=== PATIENT | male | born 1985 | race Caucasian/White ===

== ENCOUNTER → 2019-08-02 | Outpatient (CLI) | payer OTHER ==
[~2019-08-02] MED LIST: LEVE10003 PO
--- NOTE | 2019-08-04 21:41 | CR ---
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 HISTORY OF PRESENT ILLNESS: Mr. Clemons is a very pleasant 33-year-old gentleman, initially developed generalized seizure in his sleep in 09/2018. He was subsequently seen by neurologist, and he had a CT, which showed enhancing mass in the left frontal lobe of the brain. He was started on Keppra; however, patient has continued to have intermittent focal seizures, primarily involving the distal right upper extremities, and progressed uncontrollable shaking of distal right upper extremity and hand, and he experienced weakness in his arm just up to the elbow and weakness of fourth and fifth digits of the right hand. Patient's MRI of the brain was obtained, which revealed a nonenhancing metastasis in the left frontal lobe and patient was referred to [facility], where he underwent a biopsy of the lesion, followed by left frontal craniotomy for resection of the tumor, use of neuromonitoring, and neuronavigation on 06/22/2019. The pathology showed diffuse glioma with anaplastic features, WHO grade 3. Isocitrate dehydrogenase (IDH) 1 and 2 negative for IDH 1 and IDH 2 gene mutation. He is recovering from the treatment. He said he has experienced focal seizures in the right upper arm twice since surgery. Medical history is noncontributory. He denies hypertension, high cholesterol, diabetes. PAST SURGICAL HISTORY: Patient has had previous left shoulder surgery. No known allergies. CURRENT MEDICATIONS: - Keppra 1000 mg twice a day - dexamethasone was discontinued - lacosamide 100 mg tablets - Protonics prn SYSTEMIC REVIEW: GENERAL AND CONSTITUTIONAL: He denies fever, headache, nausea, vomiting or recent weight changes. HEENT: He denies any visual disturbances or hearing problems RESPIRATORY/PULMONARY: Denies cough, wheezing, hemoptysis. CARDIOVASCULAR: Denies chest pain, edema. GASTROINTESTINAL: He occasionally experienced gastroesophageal reflux disease . Denies abdominal pain, constipation or diarrhea. GENITOURINARY: Denies urinary frequency, dysuria, hematuria. MUSCULOSKELETAL: He denies any pain, arthritis; however, he has weakness of the right arm. SKIN: No eczema, psoriasis or skin lesions. NEUROLOGICAL: He has focal seizures since surgery on 06/22/2019, he experienced twice, mostly in the right upper arm. PSYCHIATRIC AND EMOTIONAL: Denies depression. PHYSICAL EXAMINATION: GENERAL EXAMINATION: Revealed well-developed, nourished male who does not appear to be in apparent distress. HEENT: Normocephalic, atraumatic. Oropharynx clear. Pupils are isocoric. NECK: Supple. No cervical, supraclavicular lymphadenopathy. On the head, there is a scar on the top of the scalp. CARDIOVASCULAR: Regular rate and rhythm. RESPIRATORY: Clear to auscultation. ABDOMEN: Soft, nontender, nondistended. Without any palpable mass or organomegaly. SKIN: There are no skin lesions. EXTREMITIES: Without swelling or cyanosis. Again, has weakness of right arm. NEUROLOGICAL: Sensation is grossly intact. PSYCHIATRIC: Mood and affect appropriate. PATHOLOGICAL FINDINGS: As mentioned in the history of present illness (HPI). RADIOLOGICAL FINDINGS: As mentioned in the history of present illness (HPI). ICD10 CODE, ASSESSMENT AND RECOMMENDATIONS: This 33-year-old very pleasant young man developed generalized seizure in his sleep in 09/2018. Following CT/MRI of the head, seen by neurologist, he started Keppra; however, he continued to have intermittent focal seizures. Subsequently,he had underwent a biopsy of the left frontal lobe followed by left frontal craniotomy for resection of the tumor( partial) and the pathology showed wild- type anaplastic astrocytoma, WHO grade 3. He was accompanied by his mother. we have discussed nature of the disease and treatment options. His diagnosis, anaplastic astrocytoma, wild type, is much more like glioblastoma multiforme and treatment is similar with GBM. which is standard radiation therapy along with Temodar. Radiation therapy will be about 6000 cGy in 6 weeks. I also discussed procedures and possible side effects associated with radiation therapy and I have given them a chance to ask questions and concerns and they were answered to their satisfaction. [facility]
== END ==
LOC: M ONCR 13:46
PROVIDERS: ATTEND Radiology Radiation Oncology
DX: C71.9 Malignant neoplasm of brain, unspecified (principal)

== ENCOUNTER 2019-08-15 10:00 | Outpatient (RCR) | payer OTHER ==
--- NOTE | 2019-08-16 10:49 | RADONC ---
RADIATION ONCOLOGY SIMULATION NOTE DATE: 08/15/2019 CHART #: [id number] Mr. Clemons was taken to the CT scan for CT simulation of his brain field. CT was accomplished without difficulty or discomfort. Radiation treatment planning is underway and radiation treatments will begin subsequently. An immobilization device including a mask was created and will be used throughout the course of treatment. It was created without difficulty or discomfort. I was physically present throughout the course of CT simulation.
--- NOTE | 2019-08-17 10:40 | RADONC ---
RADIATION ONCOLOGY PROGRESS NOTE DATE: 08/17/2019 CHART #: [id number] We are presently undertaking treatment planning for Mr. Clemons's primary brain tumor. Upon reviewing his consultation by Dr. Stephanie Barraza, I see that she has written the diagnosis as an anaplastic astrocytoma, World Health Organization (WHO) grade 3, wild type. After further review, apparently the specimen was reevaluated and it is noted that the diagnosis now is a glioblastoma WHO, grade 4, IDH/wild type. The note informs us that the morphologic immunohistochemical features are similar to the previous specimen, although microvascular proliferation and necrosis were not present in the previous specimen. It was therefore diagnosed as a grade 3 anaplastic astrocytoma. Molecular studies on tissues from the previous study demonstrated isolated 1p loss with retained 19q and IDH1/2 - wild type status. Once again, in summary, this appears to be a grade 4 glioblastoma multiforme rather than a grade 3 anaplastic astrocytoma. This of course will change our overall treatment planning and dose specifications. We will compensate accordingly. cc: MD David Cortez MD
== END 2019-08-18 ==
LOC: M ONCR 10:00
PROVIDERS: ATTEND Radiology Radiation Oncology
DX: C71.1 Malignant neoplasm of frontal lobe (principal)

== ENCOUNTER → 2019-09-18 | Outpatient (RCR) | payer OTHER ==
--- NOTE | 2019-08-28 14:51 | RADONC ---
RADIATION ONCOLOGY PROGRESS NOTE DATE: 08/27/2019 CHART NUMBER: [id number] Mr. Clemons is presently at a dose of 900 centigrade to his brain and is tolerating treatments quite well at this point with no complaints related to his radiation therapy. He is having no headaches or other problems. The patient's review of systems is noncontributory except for his continued right-sided hand weakness. He denies nausea, vomiting, fevers, chills, night sweats, diplopia, headaches, anxiety or depression, anorexia, weight loss, visual disturbances, chest pain, urinary or bowel difficulties, bone pain, or neurological problems. PHYSICAL EXAMINATION The patient's skin is in good condition with no evidence of radiation change present. He continues have right hand weakness. Physical exam is otherwise unchanged. ASSESSMENT: The patient is tolerating treatments quite well and radiation will continue as scheduled.
--- NOTE | 2019-09-04 08:56 | RADONC ---
RADIATION ONCOLOGY PROGRESS NOTE DATE: 09/03/2019 CHART NUMBER: [id number] DIAGNOSIS: Anaplastic astrocytoma, WHO grade III, wildtype. Mr. Clemons with a high-grade astrocytoma is currently receiving local regional radiotherapy and he is tolerating his radiotherapy reasonably well. REVIEW OF SYSTEMS: He denies any nausea, vomiting, headache, double vision, focal neurologic issues or skin problems. His energy level is somewhat diminished but he is still able to maintain most of his day-to-day activities without any alteration of his lifestyle. Skin irritation is denied. EXAMINATION FINDINGS: Skin within the irradiated volume shows neither erythema nor desquamation. There is no palpable peripheral lymphadenopathy. No neurologic manifestations are noted. The remainder of the physical examination is unchanged. IMPRESSION: Tolerating therapy well. PLAN: Treatments to continue.
--- NOTE | 2019-09-10 14:29 | RADONC ---
RADIATION ONCOLOGY PROGRESS NOTE: DATE: 09/10/2019 CHART NUMBER: [id number] Mr. Clemons is presently at a dose of 2520 cGy to his brain and is tolerating treatments fairly well at this point although he does have some nausea. REVIEW OF SYSTEMS: The patient's review of systems is positive for some nausea but is otherwise noncontributory. He denies nausea, vomiting, fevers, chills, night sweats, diplopia, headaches, anxiety or depression, anorexia, weight loss, visual disturbances, chest pain, urinary or bowel difficulties, bone pain, or neurological problems. PHYSICAL EXAMINATION: Physical examination was deferred secondary to COVID-19 precautions. Radiation is well tolerated. Will continue as scheduled. I have renewed the patient's Zofran prescription.
--- NOTE | 2019-09-17 14:32 | RADONC ---
RADIATION ONCOLOGY PROGRESS NOTE DATE: 09/17/2019 CHART NUMBER: [id number] PROGRESS NOTE: Mr. Clemons is presently at a dose of 3420 cGy to his brain and is tolerating treatments quite well at this point with no complaints related to his radiation therapy. He is having no headaches or seizure-like activity. REVIEW OF SYSTEMS: The patient's review of systems is noncontributory. Denies nausea, vomiting, fevers, chills, night sweats, diplopia, headaches, anxiety or depression, anorexia, weight loss, visual disturbances, chest pain, urinary or bowel difficulties, bone pain, or neurological problems. PHYSICAL EXAMINATION: The patient's skin is in good condition with no evidence of radiation change present. There is no moist or dry desquamation. The remainder of his physical exam remains unchanged. Mr. Clemons is tolerating treatments quite well and radiation will continue as scheduled.
[~2019-09-18] MED LIST changes: +ZOFR8TAB24 PO
== END ==
LOC: M ONCR 08-20 13:11
PROVIDERS: ATTEND Radiology Radiation Oncology
DX: C71.1 Malignant neoplasm of frontal lobe (principal)

== ENCOUNTER 2019-10-05 09:26 | Outpatient (RCR) | payer OTHER ==
--- NOTE | 2019-09-25 08:08 | RADONC ---
RADIATION ONCOLOGY PROGRESS NOTE DATE: 09/24/2019 CHART NUMBER: [id number] Mr. Clemons is presently a dose of 4320 cGy to his glioblastoma and overall is tolerating treatments quite well with no significant difficulties related to his radiation therapy other than some nausea. REVIEW OF SYSTEMS: The patient's review of systems is positive for some occasional nausea, but is otherwise noncontributory. He denies nausea, vomiting, fevers, chills, night sweats, diplopia, headaches, anxiety or depression, anorexia, weight loss, visual disturbances, chest pain, urinary or bowel difficulties, bone pain or neurological problems. PHYSICAL EXAMINATION: The patient's skin is in good condition with no evidence of moist or dry desquamation. The remainder of his physical exam remains unchanged. Mr. Clemons is tolerating treatments quite well and radiation will continue as scheduled.
--- NOTE | 2019-10-01 10:41 | RADONC ---
RADIATION ONCOLOGY PROGRESS NOTE DATE: 10/01/2019 CHART NUMBER: [id number] Mr. Clemons is presently at a dose of 5220 cGy to his glioblastoma and is tolerating treatments quite well at this point with no significant difficulties related to his radiation therapy other than a little nausea. This is controlled with antiemetics. The patient's review of systems is positive for some slight nausea but is otherwise noncontributory. He denies nausea, vomiting, fevers, chills, night sweats, diplopia, headaches, anxiety or depression, anorexia, weight loss, visual disturbances, chest pain, urinary or bowel difficulties, bone pain, or neurological problems. PHYSICAL EXAMINATION: The patient's skin is in good condition with no evidence of moist or dry desquamation. The remainder of his physical exam remains unchanged. Mr. Clemons is tolerating treatments quite well and radiation will continue as scheduled.
--- NOTE | 2019-10-05 13:22 | RADONC ---
RADIATION ONCOLOGY TREATMENT SUMMARY DATE OF SERVICE: 10/05/2019 CHART NUMBER: [id number] DIAGNOSIS: Anaplastic astrocytoma, wild type, grade III. ECOG PERFORMANCE STATUS: 0. TREATMENT SUMMARY: Mr. Clemons is a very pleasant 34-year-old white male with the diagnosis of anaplastic astrocytoma, grade 3, wild type who presented to us for consideration of definitive external beam radiation therapy utilizing IMRT / IGRT. We treated the patient to his brain tumor for a total dose of 5940 cGy delivered in 33 fractions of 180 cGy each over 45 elapsed days from 08/21/2019 through 10/05/2019. The patient's glioblastoma was treated on a linear accelerator utilizing A6 MV photon beam via IMRT / IGRT. Mr. Clemons tolerated his treatments quite well and was able to complete therapy as prescribed without interruption. I have scheduled the patient to see me again in 1 month for further followup. He will also continue to be followed by his other physicians as well. Thank you for allowing us to participate in the care of this very pleasant gentleman and we will keep you informed of any new developments as they occur. As always, warm regards, cc: MD David Brooks MD
== END 2019-10-18 ==
LOC: M ONCR 09:26
PROVIDERS: ATTEND Radiology Radiation Oncology
DX: C71.1 Malignant neoplasm of frontal lobe (principal)

== ENCOUNTER → 2020-03-12 | Outpatient (CLI) | payer OTHER ==
--- NOTE | 2020-04-17 12:17 | RADONC ---
ONCOLOGY FOLLOW-UP NOTE DATE: 03/12/2020 Chart #[id number] DIAGNOSIS: 1. Anaplastic astrocytoma. Grade III wild type. ECOG performance status 0. FOLLOW-UP NOTE: Mr. Clemons is a very pleasant 34-year-old white male with a diagnosis of a Grade III wild type anaplastic astrocytoma who is presenting to us today for a routine follow-up visit five months post completion of external beam radiation therapy. The patient reports that he had an MRI done three weeks ago which showed no growth or change. He is presently under systemic therapy with his medical oncologist, Dr. Mynor Gamez. He is tolerating it well. The patient has no new complaints related to his radiation therapy or disease. REVIEW OF SYSTEMS: Generally noncontributory for nausea, vomiting, fevers, chills, night sweats, diplopia, headaches, new neurological problems, urinary or bowel difficulties, bone pain, or shortness of breath. PHYSICAL EXAMINATION: Deferred as per COVID-19 precautions. ASSESSMENT: At this time, due to computer issues at our institution, I have no ability to pull up any of the patients x-ray studies. I have not been able to see the MRIs or the MRI reports. In addition, I am unable to pull up the actual original MRIs which we did have in the system. The patient is presently being well-managed and followed by his other physicians and in light of this I have discharged him from follow-up in this department at this time except on a p.r.n. basis. I had retired two months ago and there is a new physician, Dr. Rober Chakraborty, present here. I am covering for Dr. Blair vacation for these few days. I am sure Dr. Chakraborty would be happy to see this patient if one of his other physicians wishes any information at anytime. [facility]
== END ==
LOC: M ONCR 10:20
PROVIDERS: ATTEND Radiology Radiation Oncology
DX: C71.1 Malignant neoplasm of frontal lobe (principal)

== ENCOUNTER 2022-06-18 08:22 | Outpatient (RCR) | payer OTHER ==
[~2022-06-18 08:22] MED LIST changes: +DEXA2TA PO; +LACO100T PO
== END 2022-06-19 ==
LOC: M ONCR 08:22
PROVIDERS: ATTEND General Practice
DX: C71.1 Malignant neoplasm of frontal lobe (principal)

== ENCOUNTER 2022-07-09 08:29 | Outpatient (RCR) | payer OTHER | END 2022-07-20 | LOC: M ONCR 08:29 | PROVIDERS: ATTEND General Practice | DX: C71.1 Malignant neoplasm of frontal lobe (principal) ==

== ENCOUNTER → 2023-10-14 | Outpatient (CLI) | payer OTHER | LOC: M ONCR 12:56 | PROVIDERS: ATTEND General Practice | DX: C71.1 Malignant neoplasm of frontal lobe (principal); Z71.2 Person consulting for explanation of examination or test findings; F17.210 Nicotine dependence, cigarettes, uncomplicated; Z79.52 Long term (current) use of systemic steroids; Z79.899 Other long term (current) drug therapy; Z92.21 Personal history of antineoplastic chemotherapy; Z92.3 Personal history of irradiation ==